=== PATIENT | female | born 1940 | race Caucasian/White ===

== ENCOUNTER 2021-04-22 14:34 | Emergency (ER) | payer MEDICARE, BC ==
[~2021-04-22] VITALS: Ht 152.4 cm; Wt 34.1 kg
[2021-04-22 15:08] LABS: MEAN CORPUSCULAR HGB 37.3 pG CALC (26.0-32.0); MEAN CORPUSCULAR HGB CONC 31.4 g/dL CAL (32.0-36.0); NEUT# 2.98 thou/uL (2.00-7.15); RED BLOOD COUNT 1.18 mill/uL (4.20-5.60); RED CELL DISTRI WIDTH 14.7 % (11.5-15.5)
[2021-04-22 15:15] LABS: ALKALINE PHOSPHATASE 50 u/l (38-126); ANION GAP 9 (6-22 (CALC)); BILIRUBIN, TOTAL 0.2 mg/dL (0.0-1.4); BUN 27 mg/dL (8-23); BUN/CREATININE RATIO 31 (12-20 (CALC)); CARBON DIOXIDE 27 mmol/l (22-30); CHLORIDE 105 mmol/l (95-108); CREATININE 0.9 mg/dL (0.5-1.0); GFR 60 ML/MIN (>=60 (CALC)); GFR FOR AFR.AMER. > 60 ML/MIN (>=60 (CALC)); HEMOGLOBIN 4.4 g/dl (12.0-16.0); LIPASE 66 u/l (23-300); MEAN CELL VOLUME 118.6 fL CALC (80.0-100.0); POTASSIUM 3.7 mmol/l (3.5-5.1); SGOT/AST 24 u/l (9-36); SODIUM 136 mmol/l (137-146); TOTAL PROTEIN 5.5 g/dL (6.3-8.2)
[2021-04-22 15:37] LABS: HEMATOCRIT 12.8 % (37.0-47.0)
[2021-04-22 16:29] VITALS: BP 136/60
[2021-04-22 16:40] VITALS: BP 136/60
== END 2021-04-22 16:44 | disposition short-term general hospital (02) ==
LOC: ED 14:34
PROVIDERS: Family Medicine
PROC: 30233N1 Transfusion of Nonautologous Red Blood Cells into Peripheral Vein, Percutaneous Approach (ICD-10-PCS; principal; 2021-04-22)
DX: K92.1 Melena (principal); D64.9 Anemia, unspecified; I10 Essential (primary) hypertension; F03.90 Unspecified dementia, unspecified severity, without behavioral disturbance, psychotic disturbance, mood disturbance, and anxiety; I73.00 Raynaud's syndrome without gangrene
CPT/HCPCS: P9016

== ENCOUNTER 2022-07-30 10:43 | Emergency (ER) | payer MEDICARE, BC ==
[2022-07-30] VITALS (9 sets, daily range): BP systolic 121–149; BP diastolic 61–87
[~2022-07-30] VITALS: Ht 152.4 cm; Wt 40.0 kg
[2022-07-30 12:13] LABS: BASO% 0.7 % (0-3); EOS% 2.3 % (0-8); HEMATOCRIT 29.1 % (37.0-47.0); IMMATURE GRANULOCYTES 0.2 % (0.0-5.0); LYMPH% 4.3 % (15-41); MEAN CELL VOLUME 120.2 fL CALC (80.0-100.0); MEAN CORPUSCULAR HGB 37.2 pG CALC (26.0-32.0); MEAN CORPUSCULAR HGB CONC 30.9 g/dL CAL (32.0-36.0); MONO% 14.7 % (2-13); NEUT# 4.65 thou/uL (2.00-7.15); NEUT% 77.8 % (42-76); RED BLOOD COUNT 2.42 mill/uL (4.20-5.60); RED CELL DISTRI WIDTH 12.5 % (11.5-15.5)
[2022-07-30 12:29] LABS: ALBUMIN 3.9 g/dL (3.2-5.0); ALKALINE PHOSPHATASE 67 u/l (38-126); ANION GAP 13 (6-22 (CALC)); BILIRUBIN, TOTAL 0.1 mg/dL (0.02-1.3); BUN 24 mg/dL (8-23); BUN/CREATININE RATIO 30 (12-20 (CALC)); CARBON DIOXIDE 29 mmol/l (22-30); CHLORIDE 96 mmol/l (95-108); CREATININE 0.8 mg/dL (0.5-1.0); GFR FOR AFR.AMER. > 60 ML/MIN (>=60 (CALC)); GFR OTHER RACES > 60 ML/MIN (>=60 (CALC)); POTASSIUM 4.7 mmol/l (3.5-5.1); SGOT/AST 26 u/l (9-36); SODIUM 133 mmol/l (137-146); TOTAL PROTEIN 6.1 g/dL (6.3-8.2)
[2022-07-30] MEDS ORDERED: OMNICEF300 M1 PO (13:03)
[2022-07-30] MEDS ORDERED: ZOFRAN4 MG/TAB PO (13:03)
[2022-07-30] MEDS ORDERED: TRAMADOL HYDROC50 M1 PO (13:03)
== END 2022-07-30 13:23 | disposition home or self-care (01) ==
LOC: ED 10:43
PROVIDERS: Family Medicine
DX: L03.116 Cellulitis of left lower limb (principal); I10 Essential (primary) hypertension; I73.00 Raynaud's syndrome without gangrene; F03.90 Unspecified dementia, unspecified severity, without behavioral disturbance, psychotic disturbance, mood disturbance, and anxiety; M79.89 Other specified soft tissue disorders; M79.605 Pain in left leg

== ENCOUNTER 2023-05-11 16:17 | Emergency (ER) | payer MEDICARE, BC ==
[2023-05-11] VITALS (7 sets, daily range): BP systolic 190–223; BP diastolic 73–91
[~2023-05-11] VITALS: Ht 152.4 cm; Wt 38.0 kg
[~2023-05-11 16:17] MED LIST: OMNICEF300 M1 PO; TRAMADOL HYDROC50 M1 PO; ZOFRAN4 MG/TAB PO
[2023-05-11 18:38] LABS: BASO% 0.2 % (0-3); HEMATOCRIT 31.8 % (37.0-47.0); HEMOGLOBIN 10.6 g/dl (12.0-16.0); IMMATURE GRANULOCYTES 0.4 % (0.0-5.0); LYMPH% 3.8 % (15-41); MEAN CORPUSCULAR HGB 36.2 pG CALC (26.0-32.0); MEAN CORPUSCULAR HGB CONC 33.3 g/dL CAL (32.0-36.0); MONO% 7.4 % (2-13); NEUT# 4.57 thou/uL (2.00-7.15); NEUT% 87.2 % (42-76); RED BLOOD COUNT 2.93 mill/uL (4.20-5.60); RED CELL DISTRI WIDTH 13.3 % (11.5-15.5)
[2023-05-11 18:41] LABS: MEAN CELL VOLUME 108.5 fL CALC (80.0-100.0)
[2023-05-11 18:56] LABS: ALBUMIN 4.7 g/dL (3.2-5.0); ALKALINE PHOSPHATASE 76 u/l (38-126); BUN 23 mg/dL (8-23); BUN/CREATININE RATIO 33 (12-20 (CALC)); CARBON DIOXIDE 30 mmol/l (22-30); CHLORIDE 96 mmol/l (95-108); CREATININE 0.7 mg/dL (0.5-1.0); GFR FOR AFR.AMER. > 60 ML/MIN (>=60 (CALC)); GFR OTHER RACES > 60 ML/MIN (>=60 (CALC)); SGOT/AST 41 u/l (9-36); SODIUM 133 mmol/l (137-146); TOTAL PROTEIN 7.4 g/dL (6.3-8.2)
[2023-05-11 18:57] LABS: ANION GAP 11 (6-22 (CALC)); BILIRUBIN, TOTAL 0.3 mg/dL (0.02-1.3); POTASSIUM 3.5 mmol/l (3.5-5.1)
[2023-05-11 19:38] LABS: URINE BILIRUBIN - DIPSTICK Negative (NEGATIVE); URINE BLOOD DIPSTICK Small (NEGATIVE); URINE GLUCOSE - DIPSTICK Negative (NEGATIVE); URINE KETONE Negative (NEGATIVE); URINE LEUK ESTERASE Negative (NEGATIVE); URINE NITRITE - DIPSTICK Negative (Negative); URINE PH 8.5 (4.5-8.0); URINE PROTEIN - DIPSTICK 30 mg/dL (NEG-TRACE); URINE UROBILINOGEN - DIPSTICK 0.2 E.U./dL (0.2)
[2023-05-11 19:39] LABS: URINE COLOR Yellow; URINE SQUAMOUS EPITHELIAL CELL FEW EPI/hpf (0-FEW); URINE WBC 0-2 WBC/hpf (0-5)
[2023-05-11] MEDS ORDERED: ZOFRAN4 MG/TAB PO (21:02)
[2023-05-12] MEDS ORDERED: ZOFRAN4 MG/TAB PO (15:33)
== END 2023-05-11 21:19 | disposition home or self-care (01) ==
LOC: ED 16:17
PROVIDERS: Emergency Medicine
DX: B34.9 Viral infection, unspecified (principal); I10 Essential (primary) hypertension; F03.90 Unspecified dementia, unspecified severity, without behavioral disturbance, psychotic disturbance, mood disturbance, and anxiety; I73.00 Raynaud's syndrome without gangrene; Z20.822 Contact with and (suspected) exposure to COVID-19